=== PATIENT | female | born 1990 | race African-American/Black ===

== ENCOUNTER 2019-05-29 11:42 | Emergency (ER) | payer OTHER ==
[~2019-05-29] VITALS: Ht 167.6 cm; Wt 81.6 kg
[2019-05-29 11:48] VITALS: BP 135/68
--- NOTE | 2019-05-29 11:55 | NUR ---
PT AMBULATED TO ER BED 07
--- NOTE | 2019-05-29 11:58 | NUR ---
28/F BIB SELF WITH REPORTS OF SORE THROAT FOR ABOUT A MONTH. HAS BEEN SEEN BY DOCTOR AND IS SCHEDULED TO BE SEEN BY A SPECIALIST ON 06-07-2019. PT DENIES ANY FEVER, CP, SOB, OR COUGH AT THIS TIME; PATIENT STATES PAIN OF 6/10 AT THIS TIME. PATIENT POSITIONED FOR COMFORT; HOB ELEVATED; BEDRAILS UP X1; BED DOWN. ER MD MADE AWARE OF PT STATUS.
[2019-05-29 14:04] VITALS: BP 130/61
--- NOTE | 2019-05-29 14:05 | NUR ---
Patient discharged with v/s stable. Written and verbal after care instructions given and explained. Patient alert, oriented and verbalized understanding of instructions. Ambulatory with steady gait. All questions addressed prior to discharge. ID band removed. Patient advised to follow up with PMD. Rx of flagyl/kenalog given. Patient educated on indication of medication including possible reaction and side effects. Opportunity to ask questions provided and answered.
== END 2019-05-29 14:05 | disposition home or self-care (01) ==
LOC: MED 11:42
DX: K12.1 Other forms of stomatitis (principal); K12.0 Recurrent oral aphthae; J02.9 Acute pharyngitis, unspecified
CPT/HCPCS: 99283

== ENCOUNTER 2019-08-03 09:22 | Emergency (ER) | payer OTHER ==
[~2019-08-03] VITALS: Ht 170.2 cm; Wt 72.6 kg
[2019-08-03 09:31] VITALS: BP 136/83
--- NOTE | 2019-08-03 09:35 | NUR ---
C/O MOUTH PAIN 12/23 X2 WEEKS. PT REPORTS HAVING SORES IN HER MOUTH X 1 MONTH, WAS SEEN AT [facility] AND SENT HOME WITH A MEDICATION SHE CANNOT RECALL THE NAME OF. PT DENIES NEW SEXUAL PARTNERS. DENIES FEVER. SMALL RAISED BUMPS NOTED TO TOUNGE/BILAT CHEEKS. NO DRAINAGE NOTED. BED IN LOW POSITION, SIDE RAIL UP X1
[2019-08-03 10:36] VITALS: BP 136/83
--- NOTE | 2019-08-03 10:36 | NUR ---
Patient discharged with v/s stable. Written and verbal after care instructions given and explained. Patient alert, oriented and verbalized understanding of instructions. Ambulatory with steady gait. All questions addressed prior to discharge. ID band removed. Patient advised to follow up with PMD. Rx of MAALOX, KENALOG, BENADRYL given. Patient educated on indication of medication including possible reaction and side effects. Opportunity to ask questions provided and answered.
== END 2019-08-03 10:36 | disposition home or self-care (01) ==
LOC: MED 09:22
DX: K12.0 Recurrent oral aphthae (principal)
CPT/HCPCS: 99283